=== PATIENT | male | born 1945 | race Caucasian/White ===

== ENCOUNTER 2022-10-15 08:53 | Outpatient (CLI) | payer MEDICARE, SELFPAY ==
[2022-10-15 13:32] LABS: Chloride* 103 mmol/L (96-114); Potassium* 4.9 mmol/L (3.6-5.1); Sodium* 140 mmol/L (135-149)
[2022-10-15 13:35] LABS: Alanine Aminotransferase* 24 U/L (4-50); Blood Urea Nitrogen* 25 mg/dL (7-30); Carbon Dioxide* 30 mmol/L (20-32); Cholesterol* 141 mg/dL (90-199); Creatinine* 0.8 mg/dL (0.5-1.5); Estimated Glomerular Filt Rate 91 ml/min; Glucose* 110 mg/dL (60-115)
[2022-10-15 13:36] LABS: Calcium* 9.7 mg/dL (8.4-10.6); HDL Cholesterol* 47 mg/dL (>=40); LDL Cholesterol Calculated 71 mg/dL (<100); Triglycerides* 117 mg/dL (40-149)
== END 2022-10-15 08:54 | disposition home or self-care (01) ==
PROVIDERS: PCP Family Medicine; Visit Provider Family Medicine
DX: E78.5 Hyperlipidemia, unspecified (principal); I10 Essential (primary) hypertension
CPT/HCPCS: 80048; 80061; 84460

== ENCOUNTER 2023-03-17 11:53 | Outpatient (CLI) | payer MEDICARE, SELFPAY ==
[2023-03-17 13:35] LABS: Basophils Absolute Auto 0.04 K/uL (0.00-0.30); Basophils Percent Auto 0.5 % (0.0-3.0); Eosinophils Absolute Auto 0.33 K/uL (0.00-0.50); Eosinophils Percent Auto 3.9 % (0.0-7.0); Hematocrit 45.2 % (37.0-53.0); Hemoglobin* 14.1 gm/dL (13.5-17.5); Immature Granulocytes Abs Auto 0.01 K/uL (0.00-0.30); Immature Granulocytes Pct Auto 0.1 %; Lymphocytes Absolute Auto 2.55 K/uL (0.90-2.90); Mean Corpuscular HGB Conc 31 gm/dL (32-36); Mean Corpuscular Hemoglobin 27 pg (26-34); Mean Corpuscular Volume 87 fL (80-100); Monocytes Percent Auto 9.5 % (0.0-11.0); Neutrophils Absolute Auto 4.75 K/uL (1.7-7.0); Platelet Count* 235 K/uL (140-440); RDW Coefficient of Variation % 13.2 % (11.5-15.5); Red Blood Count 5.19 m/uL (4.30-5.90); White Blood Count* 8.49 K/uL (4.50-11.00)
[2023-03-17 13:39] LABS: Chloride* 103 mmol/L (96-114); Potassium* 3.9 mmol/L (3.6-5.1); Slide Review Reflex No; Sodium* 139 mmol/L (135-149)
[2023-03-17 13:42] LABS: Creatinine* 0.8 mg/dL (0.5-1.5); Estimated Glomerular Filt Rate 91 ml/min
[2023-03-17 13:43] LABS: Blood Urea Nitrogen* 21 mg/dL (7-30); Calcium* 10.1 mg/dL (8.4-10.6); Carbon Dioxide* 27 mmol/L (20-32); Glucose* 90 mg/dL (60-115)
[2023-03-17 13:46] LABS: NT Pro B Type NatriureticPept* 21 pg/mL
== END 2023-03-17 11:54 | disposition home or self-care (01) ==
PROVIDERS: PCP Family Medicine; Visit Provider Family Medicine
DX: I10 Essential (primary) hypertension (principal); R06.09 Other forms of dyspnea; E11.9 Type 2 diabetes mellitus without complications; E78.5 Hyperlipidemia, unspecified
CPT/HCPCS: 80048; 83880; 85025

== ENCOUNTER 2023-09-10 06:05 | Outpatient (CLI) | payer MEDICARE, SELFPAY ==
--- NOTE | 2023-09-10 09:03 | P.ANES_ITS ---
Anesthesia Charges Start Date/Time Anesthesia Start Date: 09/10/23 Anesthesia Start Time: 07:37 Stop Date/Time Anesthesia Stop Date: 09/10/23 Anesthesia Stop Time: 07:58 Summary Extremes of Age - Over 70 or under 1: [employer]
== END 2023-09-10 06:06 | disposition home or self-care (01) ==
LOC: OP CLINIC 06:06
PROVIDERS: PCP Family Medicine; Visit Provider Internal Medicine
DX: R19.4 Change in bowel habit (principal); K64.8 Other hemorrhoids; K57.30 Diverticulosis of large intestine without perforation or abscess without bleeding
CPT/HCPCS: 00812; 45378; 99100; J2704

== ENCOUNTER 2023-12-16 12:04 | Outpatient (CLI) | payer MEDICARE, SELFPAY | END 2023-12-16 12:05 | disposition home or self-care (01) | PROVIDERS: PCP Family Medicine; Visit Provider Family Medicine | DX: E11.9 Type 2 diabetes mellitus without complications (principal); E78.2 Mixed hyperlipidemia; I10 Essential (primary) hypertension | CPT/HCPCS: 80048; 80061 ==